=== PATIENT | male | born 1970 | race Caucasian/White ===

== ENCOUNTER 2018-01-14 04:56 | Inpatient (IN) | payer MEDICAID ==
[~2018-01-14] VITALS: Ht 180.3 cm; Wt 95.5 kg
[~2018-01-14 04:56] MED LIST: CYCL-1 PO; PRED50TA PO
[2018-01-14 05:50] LABS: PARTIAL THROMBOPLASTIN TIME 26 SECONDS (22-32); PROTHROMBIN TIME 10.6 SECONDS (9.0-12.0)
[2018-01-14 05:54] LABS: BASOPHILS % (AUTO) 0.3 % (0-1); EOSINOPHILS # (AUTO) 0.1 X10'3 (0-0.9); HEMATOCRIT 38.7 % (42.0-52.0); HEMOGLOBIN 13.1 g/dl (14.0-17.9); LYMPHOCYTES # (AUTO) 1.5 X10'3 (1.1-4.8); LYMPHOCYTES % (AUTO) 18.5 % (21-51); MEAN CORPUSCULAR HEMOGLOBIN 29.5 PG (27.0-31.0); MEAN CORPUSCULAR HGB CONC 33.9 % (33.0-36.5); MEAN CORPUSCULAR VOLUME 86.9 FL (78-98); MEAN PLATELET VOLUME 9.3 FL (7.4-10.4); MONOCYTES # (AUTO) 0.4 X10'3 (0-0.9); MONOCYTES % (AUTO) 4.8 % (2-12); NEUTROPHILS # (AUTO) 6.1 X10'3 (1.8-7.7); NEUTROPHILS % (AUTO) 75.4 % (42-75); PLATELET COUNT 155 X10'3 (140-440); RED BLOOD COUNT 4.46 X10'6 (4.70-6.10); RED CELL DISTRIBUTION WIDTH 15.2 % (11.5-14.5); WHITE BLOOD COUNT 8.1 X10'3 (4.5-11.0)
[2018-01-14 05:56] LABS: ALANINE AMINOTRANSFERASE 39 U/L (12-78); ALBUMIN 3.1 G/DL (3.4-5.0); ALBUMIN/GLOBULIN RATIO 0.9 (1.1-1.5); ALKALINE PHOSPHATASE 118 IU/L (46-116); ANION GAP 13 (8-16); ASPARTATE AMINO TRANSFERASE 34 U/L (10-37); BILIRUBIN,TOTAL 0.6 MG/DL (0.1-1.0); BLOOD UREA NITROGEN 13 MG/DL (7-18); BUN/CREATININE RATIO 15.5 (5.4-32.0); CALCIUM 8.4 MG/DL (8.5-10.1); CHLORIDE 104 MMOL/L (99-107); CREATININE 0.84 MG/DL (0.60-1.10); GLUCOSE 140 MG/DL (70-104); POTASSIUM 3.6 MMOL/L (3.5-5.1); SODIUM 139 MMOL/L (135-145); TOTAL CARBON DIOXIDE 22.3 MMOL/L (24-32); TOTAL PROTEIN 6.5 G/DL (6.4-8.2); eGFR > 90 ML/MIN
[2018-01-14] MEDS ORDERED: NO HOME MEDS (06:04)
[2018-01-14] MEDS ORDERED: normal saline 1000ml 1,000 ML IV ONE (06:33)
[2018-01-14] MEDS ORDERED: aspirin 81mg tab.chew PO ONE ×2 (06:35→09:45)
[2018-01-14] MEDS ORDERED: normal saline 1000ML IV soln IVB ONE (06:35)
[2018-01-14] MEDS ORDERED: LORazepam 2 mg/ml vial IV ONE (06:35)
[2018-01-14] MEDS ORDERED: nitroGLYCERIN 0.4mg/hour patch TD ONE (06:40)
[2018-01-14] MEDS ORDERED: diphenhydrAMINE 50 mg/ml inj IV ONE (06:45)
[2018-01-14] MEDS ORDERED: methylPREDNISolone sod succ 125mg/2ml vial IV ONE (06:45)
[2018-01-14 07:07] LABS: MAGNESIUM 1.4 MG/DL (1.5-2.4)
[2018-01-14] MEDS ORDERED: iohexol 350MG/ML 100ml bottle IV ONE (07:08)
[2018-01-14] MEDS: metoprolol tartrate 1mg/ml inj IV SCH ×3 (07:14→08:19)
[2018-01-14] MEDS ORDERED: magnesium 2GM in 50ml NS 50 ML IV ONE (08:40)
[2018-01-14] MEDS ORDERED: normal saline 1000ml 1,000 ML IV SCH (08:59)
[2018-01-14] MEDS ORDERED: magnesium hydroxide 30ml (MOM) UD suspension PO PRN (09:00)
[2018-01-14] MEDS ORDERED: magnesium 4gm in 100ml NS 100 ML IV PRN (09:00)
[2018-01-14] MEDS ORDERED: magnesium 2GM in 50ml NS 50 ML IV PRN (09:00)
[2018-01-14] MEDS ORDERED: bisacodyl 10mg suppository rectal RC PRN (09:00)
[2018-01-14] MEDS ORDERED: morphine 4 MG/ML inj SYRINge IV PRN (09:00)
[2018-01-14] MEDS ORDERED: ondansetron/PF 4mg/2ml inj IV PRN (09:00)
[2018-01-14] MEDS ORDERED: potassium Cl 20 mEq SR tablet PO PRN (09:00)
[2018-01-14] MEDS ORDERED: potassium Cl 40MEQ/NS 500ml 500 ML IV PRN ×2 (09:00)
[2018-01-14] MEDS ORDERED: ipratropium/albuterol 3ml nebule NEB PRN (09:00)
[2018-01-14] MEDS ORDERED: mag hydrox/Alum hydrox/simeth 30ml oral suspension PO PRN (09:00)
[2018-01-14] MEDS ORDERED: azithromycin/NS 500mg/250ml 250 ML IV SCH (09:29)
[2018-01-14] MEDS ORDERED: metoprolol tartrate 1mg/ml inj IV PRN (09:45)
[2018-01-14] MEDS ORDERED: metoprolol tartrate 50mg tablet PO SCH (09:45)
[2018-01-14] MEDS ORDERED: nitroGLYCERIN 0.4mg SUBLingual tab SL PRN (09:45)
[2018-01-14] MEDS ORDERED: aminophylline 250mg/10ml inj. IV PRN (09:45)
[2018-01-14] MEDS ORDERED: regadenoson 0.4mg/5ml syringe IV ONE (09:45)
[2018-01-14] MEDS: CefTRIAXone/D5W-Rocephin 1gm 50 ML IV SCH (10:28)
[2018-01-14] MEDS: K and/or MAG REPLACEMENT MC SCH (12:06)
[2018-01-14] MEDS: furosemide 10 MG/1 ML 10ml inj IV SCH ×2 (12:26→20:02)
[2018-01-14] MEDS: lisinopril 10 MG tablet PO SCH (12:27)
[2018-01-14] MEDS: pantoprazole 40 MG vial IV SCH (12:27)
[2018-01-14 15:09] LABS: CLARITY,URINE CLEAR (Clear); COLOR,URINE STRAW (Yellow); GLUCOSE, URINE NEGATIVE (Neg); KETONES,URINE NEGATIVE (Neg); LEUKOCYTE ESTERASE ,URINE NEGATIVE (Neg); NITRITES, URINE NEGATIVE (Neg); OCCULT BLOOD,URINE NEGATIVE (Neg); PROTEIN,URINE NEGATIVE (Neg); UA COLLECTION TYPE CLN CATCH MIDSTREAM; UROBILINOGEN,URINE 0.2 E.U/dL (0.2-1.0)
[2018-01-14 15:26] LABS: URINE AMPHETAMINE SCREEN NEGATIVE (Neg); URINE BARBITUATE SCREEN NEGATIVE (Neg); URINE BENZODIAZEPINES SCREEN NEGATIVE (Neg); URINE CANNABINOID SCREEN NEGATIVE (Neg); URINE COCAINE SCREEN NEGATIVE (Neg); URINE METHADONE SCREEN NEGATIVE (Neg); URINE OPIATE SCREEN NEGATIVE (Neg); URINE PHENCYCLIDINE SCREEN NEGATIVE (Neg)
[2018-01-14] MEDS: lactobacillus rhamnosus 10,000 MMU CELLS/CAPSULE PO SCH (20:02)
[2018-01-14] MEDS: heparin, porcine 5000 units/ml vial SQ SCH (20:02)
[2018-01-14] MEDS: acetaminophen 325mg tablet PO PRN (20:10)
[2018-01-15] VITALS (7 sets, daily range): BP systolic 116–133; BP diastolic 66–86
[2018-01-15 05:58] LABS: BASOPHILS # (AUTO) 0.1 X10'3 (0-0.2); BASOPHILS % (AUTO) 0.3 % (0-1); EOSINOPHILS % (AUTO) 0 % (0-6); HEMATOCRIT 37.9 % (42.0-52.0); HEMOGLOBIN 12.9 g/dl (14.0-17.9); LYMPHOCYTES # (AUTO) 1.3 X10'3 (1.1-4.8); MEAN CORPUSCULAR HEMOGLOBIN 29.3 PG (27.0-31.0); MEAN CORPUSCULAR HGB CONC 34.1 % (33.0-36.5); MEAN CORPUSCULAR VOLUME 85.8 FL (78-98); MEAN PLATELET VOLUME 9.1 FL (7.4-10.4); MONOCYTES # (AUTO) 0.7 X10'3 (0-0.9); MONOCYTES % (AUTO) 4.6 % (2-12); NEUTROPHILS # (AUTO) 12.8 X10'3 (1.8-7.7); NEUTROPHILS % (AUTO) 86.1 % (42-75); PLATELET COUNT 177 X10'3 (140-440); RED BLOOD COUNT 4.41 X10'6 (4.70-6.10); RED CELL DISTRIBUTION WIDTH 14.8 % (11.5-14.5); WHITE BLOOD COUNT 14.8 X10'3 (4.5-11.0)
[2018-01-15 06:05] LABS: INR 1.1 INR; PROTHROMBIN TIME 11.1 SECONDS (9.0-12.0)
[2018-01-15 06:13] LABS: ANION GAP 12 (8-16); BLOOD UREA NITROGEN 22 MG/DL (7-18); BUN/CREATININE RATIO 25.6 (5.4-32.0); CALCIUM 8.8 MG/DL (8.5-10.1); CHLORIDE 104 MMOL/L (99-107); CREATININE 0.86 MG/DL (0.60-1.10); GLUCOSE 117 MG/DL (70-104); MAGNESIUM 1.7 MG/DL (1.5-2.4); POTASSIUM 3.2 MMOL/L (3.5-5.1); SODIUM 142 MMOL/L (135-145); TOTAL CARBON DIOXIDE 26.1 MMOL/L (24-32); eGFR > 90 ML/MIN
[2018-01-15] MEDS ORDERED: regadenoson 0.4mg/5ml syringe IV ONE (08:00)
[2018-01-15] MEDS: K and/or MAG REPLACEMENT MC SCH (08:00)
[2018-01-15] MEDS: CefTRIAXone/D5W-Rocephin 1gm 50 ML IV SCH (09:31)
[2018-01-15] MEDS: metoprolol succinate 25mg (24-HOUR) SR. Tablet PO SCH (09:32)
[2018-01-15] MEDS: lactobacillus rhamnosus 10,000 MMU CELLS/CAPSULE PO SCH ×2 (09:32→21:01)
[2018-01-15] MEDS: magnesium Cl slow-release 64mg tablet PO PRN (09:32)
[2018-01-15] MEDS: aspirin 81mg tablet.DR PO SCH (09:33)
[2018-01-15] MEDS: lisinopril 10 MG tablet PO SCH (09:33)
[2018-01-15] MEDS: potassium Cl 20 mEq SR tablet PO PRN ×3 (09:33→17:42)
[2018-01-15] MEDS: heparin, porcine 5000 units/ml vial SQ SCH ×2 (09:34→20:00)
[2018-01-15] MEDS: pantoprazole 40 MG vial IV SCH (09:34)
[2018-01-15] MEDS ORDERED: furosemide 40mg/4ml inj IV ONE (10:15)
[2018-01-15] MEDS: potassium Cl 20 mEq SR tablet PO SCH (17:42)
[2018-01-15] MEDS: furosemide 10 MG/1 ML 10ml inj IV SCH (20:59)
[2018-01-15] MEDS: acetaminophen 325mg tablet PO PRN (21:12)
[2018-01-16] VITALS (10 sets, daily range): BP systolic 120–150; BP diastolic 77–100
[2018-01-16 06:06] LABS: BASOPHILS % (AUTO) 0.5 % (0-1); EOSINOPHILS # (AUTO) 0.1 X10'3 (0-0.9); EOSINOPHILS % (AUTO) 1.5 % (0-6); HEMATOCRIT 39.5 % (42.0-52.0); HEMOGLOBIN 13.6 g/dl (14.0-17.9); LYMPHOCYTES # (AUTO) 2.3 X10'3 (1.1-4.8); LYMPHOCYTES % (AUTO) 36.3 % (21-51); MEAN CORPUSCULAR HEMOGLOBIN 29.2 PG (27.0-31.0); MEAN CORPUSCULAR HGB CONC 34.3 % (33.0-36.5); MEAN CORPUSCULAR VOLUME 85.1 FL (78-98); MEAN PLATELET VOLUME 8.9 FL (7.4-10.4); MONOCYTES # (AUTO) 0.4 X10'3 (0-0.9); MONOCYTES % (AUTO) 6.9 % (2-12); NEUTROPHILS # (AUTO) 3.4 X10'3 (1.8-7.7); NEUTROPHILS % (AUTO) 54.8 % (42-75); PLATELET COUNT 186 X10'3 (140-440); RED BLOOD COUNT 4.65 X10'6 (4.70-6.10); RED CELL DISTRIBUTION WIDTH 15.6 % (11.5-14.5); WHITE BLOOD COUNT 6.3 X10'3 (4.5-11.0)
[2018-01-16 06:25] LABS: PROTHROMBIN TIME 10.5 SECONDS (9.0-12.0)
[2018-01-16 06:28] LABS: ALBUMIN 3.3 G/DL (3.4-5.0); ANION GAP 12 (8-16); BLOOD UREA NITROGEN 27 MG/DL (7-18); BUN/CREATININE RATIO 27.6 (5.4-32.0); CALCIUM 9.2 MG/DL (8.5-10.1); CHLORIDE 105 MMOL/L (99-107); CREATININE 0.98 MG/DL (0.60-1.10); GLUCOSE 95 MG/DL (70-104); MAGNESIUM 1.9 MG/DL (1.5-2.4); POTASSIUM 3.6 MMOL/L (3.5-5.1); SODIUM 143 MMOL/L (135-145); TOTAL CARBON DIOXIDE 26.4 MMOL/L (24-32); eGFR 81 ML/MIN
[2018-01-16] MEDS: morphine 4 MG/ML inj SYRINge IV PRN ×3 (07:38→21:41)
[2018-01-16] MEDS: CefTRIAXone/D5W-Rocephin 1gm 50 ML IV SCH (07:39)
[2018-01-16] MEDS: pantoprazole 40mg Tablet.DR PO SCH (07:41)
[2018-01-16] MEDS: potassium Cl 20 mEq SR tablet PO SCH ×2 (07:41→17:33)
[2018-01-16] MEDS: potassium Cl 20 mEq SR tablet PO PRN ×3 (07:41→17:33)
[2018-01-16] MEDS: furosemide 10 MG/1 ML 10ml inj IV SCH ×2 (07:41→19:40)
[2018-01-16] MEDS: aspirin 81mg tablet.DR PO SCH (07:41)
[2018-01-16] MEDS: magnesium Cl slow-release 64mg tablet PO PRN ×2 (07:41→17:33)
[2018-01-16] MEDS: metoprolol succinate 25mg (24-HOUR) SR. Tablet PO SCH (07:41)
[2018-01-16] MEDS: lisinopril 10 MG tablet PO SCH (07:42)
[2018-01-16] MEDS: lactobacillus rhamnosus 10,000 MMU CELLS/CAPSULE PO SCH ×2 (07:42→19:41)
[2018-01-16] MEDS: heparin, porcine 5000 units/ml vial SQ SCH ×2 (07:42→19:41)
[2018-01-16] MEDS: K and/or MAG REPLACEMENT MC SCH (08:00)
[2018-01-17 03:00] VITALS: BP 126/88
[2018-01-17 05:18] LABS: BASOPHILS % (AUTO) 0.6 % (0-1); EOSINOPHILS # (AUTO) 0.1 X10'3 (0-0.9); EOSINOPHILS % (AUTO) 1.6 % (0-6); HEMATOCRIT 44.9 % (42.0-52.0); HEMOGLOBIN 15.3 g/dl (14.0-17.9); LYMPHOCYTES # (AUTO) 2.1 X10'3 (1.1-4.8); LYMPHOCYTES % (AUTO) 32.5 % (21-51); MEAN CORPUSCULAR HEMOGLOBIN 29.2 PG (27.0-31.0); MEAN CORPUSCULAR HGB CONC 34.1 % (33.0-36.5); MEAN CORPUSCULAR VOLUME 85.7 FL (78-98); MEAN PLATELET VOLUME 9.5 FL (7.4-10.4); MONOCYTES # (AUTO) 0.5 X10'3 (0-0.9); MONOCYTES % (AUTO) 7.7 % (2-12); NEUTROPHILS # (AUTO) 3.7 X10'3 (1.8-7.7); NEUTROPHILS % (AUTO) 57.6 % (42-75); PLATELET COUNT 205 X10'3 (140-440); RED BLOOD COUNT 5.24 X10'6 (4.70-6.10); RED CELL DISTRIBUTION WIDTH 15.6 % (11.5-14.5); WHITE BLOOD COUNT 6.4 X10'3 (4.5-11.0)
[2018-01-17 05:40] LABS: PROTHROMBIN TIME 10.5 SECONDS (9.0-12.0)
[2018-01-17 05:46] LABS: ALBUMIN 3.6 G/DL (3.4-5.0); ANION GAP 12 (8-16); BLOOD UREA NITROGEN 32 MG/DL (7-18); BUN/CREATININE RATIO 34.8 (5.4-32.0); CALCIUM 9.7 MG/DL (8.5-10.1); CHLORIDE 104 MMOL/L (99-107); CREATININE 0.92 MG/DL (0.60-1.10); GLUCOSE 89 MG/DL (70-104); SODIUM 141 MMOL/L (135-145); TOTAL CARBON DIOXIDE 25.2 MMOL/L (24-32); eGFR 87 ML/MIN
[2018-01-17 06:00] VITALS: BP 124/85
[2018-01-17 08:00] VITALS: BP_SYST 112; BP_SYST 119; BP_SYST 123; BP_DIAS 67; BP_DIAS 87; BP_DIAS 91
[2018-01-17] MEDS: K and/or MAG REPLACEMENT MC SCH (08:00)
[2018-01-17] MEDS: lisinopril 10 MG tablet PO SCH (08:36)
[2018-01-17] MEDS: metoprolol succinate 25mg (24-HOUR) SR. Tablet PO SCH (08:36)
[2018-01-17] MEDS: lactobacillus rhamnosus 10,000 MMU CELLS/CAPSULE PO SCH (08:36)
[2018-01-17] MEDS: potassium Cl 20 mEq SR tablet PO SCH (08:36)
[2018-01-17] MEDS: pantoprazole 40mg Tablet.DR PO SCH (08:37)
[2018-01-17] MEDS: furosemide 10 MG/1 ML 10ml inj IV SCH (08:37)
[2018-01-17] MEDS: heparin, porcine 5000 units/ml vial SQ SCH (08:37)
[2018-01-17] MEDS: aspirin 81mg tablet.DR PO SCH (08:37)
[2018-01-17] MEDS: CefTRIAXone/D5W-Rocephin 1gm 50 ML IV SCH (08:38)
[2018-01-17] MEDS: acetaminophen 325mg tablet PO PRN (09:29)
[2018-01-17 11:00] VITALS: BP 112/67
[2018-01-17] MEDS ORDERED: METO-395 PO (12:05)
[2018-01-17] MEDS ORDERED: LISI10TA4 PO (12:05)
[2018-01-17] MEDS ORDERED: POTA20TA10 PO (12:05)
[2018-01-17] MEDS ORDERED: FURO-150 PO (12:05)
[2018-01-17] MEDS ORDERED: ASPI-1071 PO (12:05)
== END 2018-01-17 13:00 | disposition home or self-care (01) | DRG 133 ==
LOC: ER 04:57 → ED HOLD 08:59 → CMPBEDREQ 01-15 07:18 → PCU 3S 01-15 09:21
PROVIDERS: ADMIT Internal Medicine; ATTEND Internal Medicine
PROC: B32T1ZZ Computerized Tomography (CT Scan) of Left Pulmonary Artery using Low Osmolar Contrast (ICD-10-PCS; principal; 2018-01-14)
PROC: B3201ZZ Computerized Tomography (CT Scan) of Thoracic Aorta using Low Osmolar Contrast (ICD-10-PCS; 2018-01-14)
PROC: B32S1ZZ Computerized Tomography (CT Scan) of Right Pulmonary Artery using Low Osmolar Contrast (ICD-10-PCS; 2018-01-14)
DX: J96.20 Acute and chronic respiratory failure, unspecified whether with hypoxia or hypercapnia (principal); I50.23 Acute on chronic systolic (congestive) heart failure; I42.0 Dilated cardiomyopathy; E83.42 Hypomagnesemia; I11.0 Hypertensive heart disease with heart failure; E87.6 Hypokalemia; F12.90 Cannabis use, unspecified, uncomplicated; F17.210 Nicotine dependence, cigarettes, uncomplicated; F32.9 Major depressive disorder, single episode, unspecified; F41.9 Anxiety disorder, unspecified; G40.909 Epilepsy, unspecified, not intractable, without status epilepticus; I16.1 Hypertensive emergency; J20.9 Acute bronchitis, unspecified; J45.909 Unspecified asthma, uncomplicated; M19.90 Unspecified osteoarthritis, unspecified site; F15.10 Other stimulant abuse, uncomplicated; R59.0 Localized enlarged lymph nodes; G47.9 Sleep disorder, unspecified; Z88.6 Allergy status to analgesic agent; Z88.8 Allergy status to other drugs, medicaments and biological substances; Z79.899 Other long term (current) drug therapy; Z82.49 Family history of ischemic heart disease and other diseases of the circulatory system; Z91.041 Radiographic dye allergy status
CPT/HCPCS: 36415; 71045; 71275; 80048; 80053; 80305; 81003; 83735; 83880; 84484; 85025; 85610; 85730; 87070; 93005; 93306; 94760; 96361; 96374; 96375; 99285; A6257; C9113; J0456; J0696; J1200; J1644; J1940; J2060; J2270; J2930; J3475; J3490; J7030; Q9967

== ENCOUNTER 2018-01-21 11:23 | Outpatient (CLI) | payer MEDICAID ==
[~2018-01-21 11:23] MED LIST changes: +ASPI-1071 PO; -CYCL-1 PO; +FURO-150 PO; +LISI10TA4 PO; +METO-395 PO; +NO HOME MEDS; +POTA20TA10 PO; -PRED50TA PO
[2018-01-21 12:59] LABS: ALANINE AMINOTRANSFERASE 63 U/L (12-78); ALBUMIN 3.7 G/DL (3.4-5.0); ALKALINE PHOSPHATASE 125 IU/L (46-116); ANION GAP 5 (8-16); ASPARTATE AMINO TRANSFERASE 43 U/L (10-37); BILIRUBIN,TOTAL 0.5 MG/DL (0.1-1.0); BLOOD UREA NITROGEN 16 MG/DL (7-18); CALCIUM 9.6 MG/DL (8.5-10.1); CHLORIDE 103 MMOL/L (99-107); GLUCOSE 99 MG/DL (70-104); MAGNESIUM 2.1 MG/DL (1.5-2.4); POTASSIUM 4.7 MMOL/L (3.5-5.1); SODIUM 138 MMOL/L (135-145); TOTAL CARBON DIOXIDE 30.4 MMOL/L (24-32); TOTAL PROTEIN 7.5 G/DL (6.4-8.2); eGFR 79 ML/MIN
== END 2018-01-21 23:59 | disposition home or self-care (01) ==
LOC: LAB 11:23
PROVIDERS: ATTEND Internal Medicine
DX: I11.0 Hypertensive heart disease with heart failure (principal); I50.22 Chronic systolic (congestive) heart failure; Z87.891 Personal history of nicotine dependence
CPT/HCPCS: 36415; 80053; 83735

== ENCOUNTER 2018-05-08 13:25 | Emergency (ER) | payer MEDICAID ==
[~2018-05-08] VITALS: Ht 180.3 cm; Wt 83.0 kg
[2018-05-08] MEDS ORDERED: acetaminophen 325mg tablet PO STA (14:29)
[2018-05-08] MEDS ORDERED: clindamycin 600mg/D5W 50ml 50 ML IV ONE (14:40)
[2018-05-08] MEDS ORDERED: morphine 2 MG/ML inj. syringe IV ONE (14:45)
[2018-05-08 15:15] VITALS: BP 122/78
[2018-05-08 15:20] LABS: BASOPHILS % (AUTO) 0 % (0-1); EOSINOPHILS % (AUTO) 0.5 % (0-6); HEMATOCRIT 39.1 % (42.0-52.0); HEMOGLOBIN 13.5 g/dl (14.0-17.9); LYMPHOCYTES # (AUTO) 1.2 X10'3 (1.1-4.8); LYMPHOCYTES % (AUTO) 15.6 % (21-51); MEAN CORPUSCULAR HEMOGLOBIN 30.8 PG (27.0-31.0); MEAN CORPUSCULAR HGB CONC 34.5 % (33.0-36.5); MEAN CORPUSCULAR VOLUME 89.2 FL (78-98); MEAN PLATELET VOLUME 9.3 FL (7.4-10.4); MONOCYTES # (AUTO) 0.5 X10'3 (0-0.9); MONOCYTES % (AUTO) 6.7 % (2-12); NEUTROPHILS # (AUTO) 5.8 X10'3 (1.8-7.7); NEUTROPHILS % (AUTO) 77.2 % (42-75); PLATELET COUNT 126 X10'3 (140-440); RED BLOOD COUNT 4.39 X10'6 (4.70-6.10); RED CELL DISTRIBUTION WIDTH 14.3 % (11.5-14.5); WHITE BLOOD COUNT 7.5 X10'3 (4.5-11.0)
[2018-05-08 15:34] LABS: ALANINE AMINOTRANSFERASE 31 U/L (12-78); ALBUMIN 3.2 G/DL (3.4-5.0); ALBUMIN/GLOBULIN RATIO 0.8 (1.1-1.5); ALKALINE PHOSPHATASE 103 IU/L (46-116); ANION GAP 6 (8-16); ASPARTATE AMINO TRANSFERASE 20 U/L (10-37); BLOOD UREA NITROGEN 10 MG/DL (7-18); BUN/CREATININE RATIO 11.4 (5.4-32.0); CALCIUM 8.6 MG/DL (8.5-10.1); CHLORIDE 102 MMOL/L (99-107); CREATININE 0.88 MG/DL (0.60-1.10); GLUCOSE 88 MG/DL (70-104); POTASSIUM 3.3 MMOL/L (3.5-5.1); SODIUM 135 MMOL/L (135-145); TOTAL CARBON DIOXIDE 26.7 MMOL/L (24-32); TOTAL PROTEIN 7.4 G/DL (6.4-8.2); eGFR > 90 ML/MIN
[2018-05-08 15:43] LABS: CLARITY,URINE Clear (Clear); COLOR,URINE Yellow (Yellow); GLUCOSE, URINE Negative (Neg); KETONES,URINE Negative (Neg); LEUKOCYTE ESTERASE ,URINE Negative (Neg); NITRITES, URINE Negative (Neg); OCCULT BLOOD,URINE Negative (Neg); PH,URINE 5.5 (4.8-8.0); PROTEIN,URINE Negative (Neg)
[2018-05-08 15:46] LABS: UA COLLECTION TYPE CLN CATCH MIDSTREAM
[2018-05-08] MEDS ORDERED: SULF1TAB49 PO (16:21)
[2018-05-08] MEDS ORDERED: CEPH-572 PO (16:21)
[2018-05-08] MEDS ORDERED: HYDR-565 PO (16:35)
== END 2018-05-08 16:46 | disposition home or self-care (01) ==
LOC: ER 13:26
DX: L02.01 Cutaneous abscess of face (principal); I10 Essential (primary) hypertension; J45.909 Unspecified asthma, uncomplicated; M19.90 Unspecified osteoarthritis, unspecified site; Z98.890 Other specified postprocedural states; Z88.5 Allergy status to narcotic agent; Z88.8 Allergy status to other drugs, medicaments and biological substances; Z79.82 Long term (current) use of aspirin; Z79.899 Other long term (current) drug therapy
CPT/HCPCS: 36415; 70486; 71045; 80053; 81003; 83605; 84145; 85025; 87040; 96365; 96375; 99285; J2270; J3490

== ENCOUNTER 2018-09-18 12:30 | Emergency (ER) | payer MEDICAID ==
[~2018-09-18] VITALS: Ht 180.3 cm; Wt 101.0 kg
[2018-09-18 13:18] VITALS: BP 140/72
[2018-09-18] MEDS ORDERED: ketorolac tromethamine 15mg/ml inj. IM ONE (14:35)
[2018-09-18] MEDS ORDERED: HYDR-3965 PO (14:36)
== END 2018-09-18 14:50 | disposition home or self-care (01) ==
LOC: ER 12:31
DX: M25.511 Pain in right shoulder (principal); I10 Essential (primary) hypertension; J45.909 Unspecified asthma, uncomplicated; M19.90 Unspecified osteoarthritis, unspecified site; Z86.69 Personal history of other diseases of the nervous system and sense organs; Z79.899 Other long term (current) drug therapy; Z88.6 Allergy status to analgesic agent; Z88.5 Allergy status to narcotic agent; Z88.8 Allergy status to other drugs, medicaments and biological substances; Z79.82 Long term (current) use of aspirin
CPT/HCPCS: 73030; 96372; 99284; J1885

== ENCOUNTER 2018-12-08 15:07 | Emergency (ER) | payer MEDICAID ==
[~2018-12-08] VITALS: Ht 180.3 cm; Wt 100.0 kg
[2018-12-08 15:39] VITALS: BP 153/95
[2018-12-08] MEDS ORDERED: METH-360 PO (16:13)
[2018-12-08] MEDS ORDERED: orphenadrine citrate 60mg/2ml inj. IM ONE (16:15)
[2018-12-08] MEDS ORDERED: ketorolac tromethamine 15mg/ml inj. IM ONE (16:15)
[2018-12-08] MEDS ORDERED: cyclobenzaprine 10mg tablet PO ONE (16:20)
== END 2018-12-08 16:38 | disposition home or self-care (01) ==
LOC: ER 15:07
DX: M54.42 Lumbago with sciatica, left side (principal); I10 Essential (primary) hypertension; J45.909 Unspecified asthma, uncomplicated; M19.90 Unspecified osteoarthritis, unspecified site; Z98.890 Other specified postprocedural states; Z88.6 Allergy status to analgesic agent; Z88.5 Allergy status to narcotic agent; Z79.82 Long term (current) use of aspirin; Z79.899 Other long term (current) drug therapy
CPT/HCPCS: 96372; 99283; J1885

== ENCOUNTER 2021-05-14 07:59 | Day surgery (SDC) | payer OTHER, MEDICAID ==
[~2021-05-14] VITALS: Ht 180.3 cm; Wt 116.9 kg
[2021-05-14] VITALS (10 sets, daily range): BP systolic 138–163; BP diastolic 85–99
[~2021-05-14 07:59] MED LIST changes: +LISI10TA27 PO; -LISI10TA4 PO; +METH-360 PO; +POTA-197 PO; -POTA20TA10 PO
[2021-05-14] MEDS ORDERED: diphenhydrAMINE 25mg capsule PO PRN (08:25)
[2021-05-14] MEDS ORDERED: normal saline 1,000 ML IV SCH (08:25)
[2021-05-14] MEDS ORDERED: NITR0.4T48 SL (08:35)
[2021-05-14] MEDS ORDERED: LISI20TA28 PO (08:35)
[2021-05-14] MEDS ORDERED: OMEP-50 PO (08:35)
[2021-05-14] MEDS ORDERED: FURO40TA4 PO (08:35)
[2021-05-14] MEDS ORDERED: ATOR40TA72 PO (08:35)
[2021-05-14] MEDS ORDERED: ESCI20TA39 PO (08:35)
[2021-05-14] MEDS ORDERED: FLUT16SP20 BOTHNARES (08:35)
[2021-05-14] MEDS ORDERED: POTA20TA19 PO (08:35)
[2021-05-14] MEDS ORDERED: LORA10TA7 PO (08:35)
[2021-05-14] MEDS ORDERED: QUET-1 PO (08:38)
[2021-05-14] MEDS ORDERED: HYDR-3686 PO (08:38)
[2021-05-14] MEDS ORDERED: METO-539 PO (08:38)
[2021-05-14] MEDS ORDERED: ASPI-611 PO (08:38)
[2021-05-14] MEDS ORDERED: midazolam 1 mg/ML 2ml injection ONE ×3 (09:04→10:40)
[2021-05-14] MEDS ORDERED: heparin 1,000unit/ml 10ml vial 10 ML ONE (09:04)
[2021-05-14] MEDS ORDERED: fentaNYL/PF 50MCG/1 ML 2ML syringe ONE (09:04)
[2021-05-14] MEDS ORDERED: iohexol 350 MG/ML 50ML vial IV ONE (09:04)
[2021-05-14] MEDS ORDERED: LIDOcaine 1% (10mg/ml)w/preservative injection 20ml MDV ONE (09:04)
[2021-05-14] MEDS ORDERED: iohexol 350MG/ML 100ml bottle IV ONE ×2 (09:04→10:56)
[2021-05-14 09:15] LABS: BASOPHILS % (AUTO) 0.2 % (0-1); EOSINOPHILS # (AUTO) 0.1 X10'3 (0-0.9); HEMATOCRIT 38.3 % (42.0-52.0); HEMOGLOBIN 13.5 g/dl (14.0-17.9); LYMPHOCYTES # (AUTO) 1.6 X10'3 (1.1-4.8); LYMPHOCYTES % (AUTO) 34.9 % (21-51); MEAN CORPUSCULAR HEMOGLOBIN 30.5 PG (27.0-31.0); MEAN CORPUSCULAR HGB CONC 35.2 g/dL (33.0-36.5); MEAN CORPUSCULAR VOLUME 86.7 FL (78-98); MEAN PLATELET VOLUME 8.9 FL (7.4-10.4); MONOCYTES # (AUTO) 0.3 X10'3 (0-0.9); MONOCYTES % (AUTO) 6.1 % (2-12); NEUTROPHILS # (AUTO) 2.6 X10'3 (1.8-7.7); NEUTROPHILS % (AUTO) 56.8 % (42-75); PLATELET COUNT 144 X10'3 (140-440); RED BLOOD COUNT 4.42 X10'6 (4.70-6.10); WHITE BLOOD COUNT 4.6 X10'3 (4.5-11.0)
[2021-05-14 09:29] LABS: ALBUMIN 3.4 G/DL (3.4-5.0); ANION GAP 11 (8-16); BLOOD UREA NITROGEN 9 MG/DL (7-18); BUN/CREATININE RATIO 13.8 (5.4-32.0); CALCIUM 8.1 MG/DL (8.5-10.1); CHLORIDE 108 MMOL/L (99-107); CREATININE 0.65 MG/DL (0.60-1.10); GLUCOSE 92 MG/DL (70-104); MAGNESIUM 1.1 MG/DL (1.5-2.4); POTASSIUM 3.3 MMOL/L (3.5-5.1); SODIUM 144 MMOL/L (135-145); TOTAL CARBON DIOXIDE 25.2 MMOL/L (24-32); eGFR > 90 ML/MIN
[2021-05-14] MEDS ORDERED: hydrocortisone sod succ/PF 100mg/2ml inj. ONE (10:37)
[2021-05-14] MEDS ORDERED: clopidogrel 300mg tablet ONE (11:15)
[2021-05-14] MEDS ORDERED: normal saline 1000ml 1,000 ML IV SCH (11:50)
[2021-05-14] MEDS ORDERED: proCHLORperazine 10 MG/2 ml inj IV PRN (11:50)
[2021-05-14] MEDS ORDERED: ondansetron/PF 4mg/2ml inj IV PRN (11:50)
[2021-05-14] MEDS ORDERED: HYDROcodone/acetaminophen 5mg/325mg tablet PO PRN (11:50)
[2021-05-14] MEDS ORDERED: HYDROcodone/acetaminophen 10/325mg tab PO PRN (11:50)
== END 2021-05-14 15:00 | disposition home or self-care (01) ==
LOC: SSTAY O 07:59
PROVIDERS: ATTEND Internal Medicine Cardiovascular Disease
DX: R94.39 Abnormal result of other cardiovascular function study (principal); I25.10 Atherosclerotic heart disease of native coronary artery without angina pectoris; E78.5 Hyperlipidemia, unspecified; Z79.899 Other long term (current) drug therapy; Z88.8 Allergy status to other drugs, medicaments and biological substances
CPT/HCPCS: 36415; 80048; 83735; 85025; 85610; 92978; 93005; 93458; 93571; 99152; 99153; C1751; C1753; C1760; C1769; C1874; C1894; C9600; J1644; J1720; J2001; J2250; J3010; J7030; Q0163; Q9967; A4620; A6258